=== PATIENT | male | born 2000 | race American Indian/Alaskan Native ===

== ENCOUNTER 2019-01-09 01:14 | Emergency (ER) | payer SELFPAY ==
--- NOTE | 2019-01-09 01:37 | Emergency Department Report ---
ED General Adult HPI - General Chief complaint: Seizure Stated complaint: SEIZURES/UNRESPONSIVE Time Seen by Provider: 01/09/19 01:25 Source: patient, family, EMS, RN notes reviewed Mode of arrival: Stretcher Limitations: Language Barrier - History of Present Illness Initial comments: This provider is conversational in Sami. Verbal report received from emergency medical services. EMS documentation not available at time of chart dictation Patient is a 18-year-old gentleman with no known past medical history brought to the ER by emergency medical services for general evaluation. Apparently, at home, the patient was demonstrate and bizarre behavior, such as breath holding, and not speaking. Emergency medical services stated patient had normal vital signs in the field, no loss of consciousness, and appear to be taking deep breaths, and intermittently holding his breaths. In the emergency room, the patient denies physical pain. He specifically indicates that he is not having headache, neck pain, chest pain, abdominal pain, shortness of breath or urinary symptoms. He indicated that he does not use recreational drugs. He is accompanied by a 16-year-old cousin, who indicates the patient may have been having shaking spells. -: This afternoon Consistency: intermittent Improves with: none Worsens with: none - Related Data Allergies Allergy/AdvReac Type Severity Reaction Status Date / Time No Known Allergies Allergy Unverified 01/09/19 01:37 ED Review of Systems ROS: Stated complaint: SEIZURES/UNRESPONSIVE Other details as noted in HPI Constitutional: denies: fever Respiratory: denies: cough Cardiovascular: denies: syncope Gastrointestinal: denies: abdominal pain, vomiting Genitourinary: denies: dysuria Musculoskeletal: denies: back pain Neurological: denies: headache ED Physical Exam - General Limitations: Language Barrier General appearance: alert, anxious - Head Head exam: Present: atraumatic, normocephalic - Eye Eye exam: Present: normal appearance, PERRL, EOMI, other (visual acuity intact to finger counting and color perception at a close distance). Absent: nystagmus - ENT ENT exam: Present: normal exam, normal orophraynx, mucous membranes moist, normal external ear exam - Neck Neck exam: Present: normal inspection, full ROM. Absent: tenderness, meningismus - Respiratory Respiratory exam: Present: normal lung sounds bilaterally. Absent: respiratory distress - Cardiovascular Cardiovascular Exam: Present: regular rate, normal rhythm, normal heart sounds. Absent: bradycardia, tachycardia, irregular rhythm, systolic murmur, diastolic murmur, rubs, gallop - GI/Abdominal GI/Abdominal exam: Present: soft. Absent: distended, tenderness, guarding, rigid, pulsatile mass - Rectal Rectal exam: Present: deferred - Extremities Exam Extremities exam: Present: normal inspection, full ROM, other (2+ pulses noted in the bilateral upper, lower extremities. There is no long bone tenderness. Musculoskeletal compartments are soft. The pelvis is stable.). Absent: pedal edema, joint swelling, calf tenderness - Back Exam Back exam: Present: normal inspection, full ROM. Absent: tenderness, CVA tenderness (R), CVA tenderness (L), paraspinal tenderness, vertebral tenderness - Neurological Exam Neurological exam: Present: alert (patient alert to name, year and location. Patient follows commands.), normal gait, other (there is no facial droop. The tongue is midline. Extraocular movements are intact bilaterally. There is 5/5 strength in 4 extremities. Sensation is intact to light touch in 4 extremities.) - Psychiatric Psychiatric exam: Present: anxious - Skin Skin exam: Present: warm, dry, intact, normal color. Absent: rash ED Course Vital Signs 01/09/19 01/09/19 01/09/19 01:22 01:26 03:44 Temperature 98.4 F 98.6 F Pulse Rate 64 75 72 Respiratory 16 20 16 Rate Blood Pressure 117/65 99/64 109/77 [Right] O2 Sat by Pulse 100 100 97 Oximetry - Reevaluation(s) Reevaluation #1: 01/09/19 01:42 Differential diagnosis, including but not limited to: Anxiety, conversion disorder, convulsion, seizure, pseudoseizure Assessment and plan: 18-year-old gentleman with reported episode of shaking, who is awake, alert, oriented, walks with a steady gait, denies physical pain, appears to be somewhat anxious at this time. The patient is clinically sober at this time. He makes no complaint of homicidality or suicidality. He is amenable to screening laboratory studies, EKG, noncontrast CT scan of the brain. Reevaluation #2: 01/09/19 02:23 CT scan of the brain is negative for acute disease. Patient following commands. Continues to walk with a steady gait. No further events noted. Reevaluation #3: 01/09/19 02:45 Serum toxicology screen unremarkable. Basic metabolic panel unremarkable. No convulsive events noted. Resting comfortably. Follows commands. Does not appear to be in any acute distress. Reevaluation #4: 01/09/19 03:26 Patient with no change in clinical condition on multiple repeat evaluations. Vital signs are unremarkable, screening laboratory studies unremarkable, patient does not appear to have an emergent medical condition at this time, and he is suitable to follow-up with an outpatient primary care doctor. He is currently accompanied by an adult family member. ED Medical Decision Making - Lab Data Result diagrams: 01/09/19 01:56 01/09/19 01:56 Vital Signs (72 hours) 01/09/19 01:26 Temperature 98.6 F Pulse Rate 75 Respiratory 20 Rate Blood Pressure 99/64 [Right] O2 Sat by Pulse 100 Oximetry Vital Signs 01/09/19 01/09/19 01:22 01:26 Temperature 98.4 F 98.6 F Pulse Rate 64 75 Respiratory 16 20 Rate Blood Pressure 117/65 99/64 [Right] O2 Sat by Pulse 100 100 Oximetry Lab Results 01/09/19 01/09/19 01/09/19 Range/Units 01:56 01:56 01:56 WBC 8.5 (4.5-11.0) K/mm3 RBC 4.87 (3.65-5.03) M/mm3 Hgb 14.1 (11.8-15.2) gm/dl Hct 42.1 (35.5-45.6) % MCV 87 (84-94) fl MCH 29 (28-32) pg MCHC 34 (32-34) % RDW 13.7 (13.2-15.2) % Plt Count 224 (140-440) K/mm3 Sodium 138 (137-145) mmol/L Potassium 3.6 (3.6-5.0) mmol/L Chloride 103.8 (98-107) mmol/L Carbon Dioxide 22 (22-30) mmol/L Anion Gap 16 mmol/L BUN 15 (9-20) mg/dL Creatinine 1.0 (0.8-1.5) mg/dL Estimated GFR > 60 ml/min BUN/Creatinine Ratio 15 % Glucose 113 H (75-100) mg/dL Calcium 9.1 (8.4-10.2) mg/dL Magnesium 2.10 (1.7-2.3) mg/dL Urine Bilirubin (Negative) Urine RBC (Auto) (0.0-6.0) /HPF Salicylates < 0.3 L (2.8-20.0) mg/dL Acetaminophen (10.0-30.0) ug/mL Plasma/Serum Alcohol (0-0.07) % 01/09/19 01/09/19 01/09/19 Range/Units 01:56 01:56 02:21 WBC (4.5-11.0) K/mm3 RBC (3.65-5.03) M/mm3 Hgb (11.8-15.2) gm/dl Hct (35.5-45.6) % MCV (84-94) fl MCH (28-32) pg MCHC (32-34) % RDW (13.2-15.2) % Plt Count (140-440) K/mm3 Sodium (137-145) mmol/L Potassium (3.6-5.0) mmol/L Chloride (98-107) mmol/L Carbon Dioxide (22-30) mmol/L Anion Gap mmol/L BUN (9-20) mg/dL Creatinine (0.8-1.5) mg/dL Estimated GFR ml/min BUN/Creatinine Ratio % Glucose (75-100) mg/dL Calcium (8.4-10.2) mg/dL Magnesium (1.7-2.3) mg/dL Urine Bilirubin Neg (Negative) Urine RBC (Auto) 2.0 (0.0-6.0) /HPF Salicylates (2.8-20.0) mg/dL Acetaminophen < 5.0 L (10.0-30.0) ug/mL Plasma/Serum Alcohol < 0.01 (0-0.07) % - EKG Data -: EKG Interpreted by Tn EKG shows normal: sinus rhythm Rate: normal - EKG Data 01/09/19 01:43 The EKG today shows a sinus rhythm, 79 beats for minute, normal axis, QTC is 476 ms, there is high left ventricular voltage, the EKG is abnormal, there is no prior for comparison, the EKG is not consistent with a STEMI - Radiology Data Radiology results: pending, report reviewed, image reviewed Critical care attestation.: If time is entered above; I have spent that time in minutes in the direct care of this critically ill patient, excluding procedure time. ED Disposition Clinical Impression: General medical exam Disposition: DC-01 TO HOME OR SELFCARE Is pt being admited?: No Does the pt Need Aspirin: No Condition: Stable Additional Instructions: Do not drive or operate motor vehicles for the next 6 months, or until cleared to do so by your primary care doctor. Drink 4-6 cups of water per day, and eat 3-6 well balanced meals every day. If patient is smoking cigarettes, consuming alcohol, or using recreational drugs, recommend patient discontinue these habits. Recommend patient follow up with an outpatient primary care doctor within the next 2 weeks. Return to the emergency room right away with new, worsened or different symptoms, or symptoms not present on the initial emergency room evaluation. No conduzca ni maneje vehculos motorizados ca los prximos 6 meses, o hasta que brady mdico de atencin primaria lo autorice. Shabana 4-6 tazas de agua por da, y coma 3-6 comidas mohit balanceadas todos los cerda. Si el paciente fuma cigarrillos, consume alcohol o usa drogas recreativas, recomiende que deje de usar estos hbitos. Recomendar el seguimiento del paciente con un mdico de atencin primaria ambulatoria dentro de las prximas 2 semanas. Regrese a la sergey de emergencias de inmediato con sntomas nuevos, empeorados o diferentes, o sntomas que no estn presentes en la evaluacin inicial de la sergey de emergencias. Referrals: [facility] [Provider Group] - 3-5 Days [facility] [Provider Group] - 3-5 Days Print Language: INDONESIAN
[2019-01-09] MEDS ORDERED: SODIUM CHLORIDE 0.9% 1000 ML 1,000 ML IV ONE (01:39)
--- NOTE | 2019-01-09 02:15 | Cat Scan Report ---
Examination: CT of the head without contrast Clinical information: Altered mental status. Convulsions. Comparison: None Technical: Multiple axial CT images of the head were obtained without intravenous contrast. Sagittal and coronal reformats were obtained. All CTs at this facility utilize dose reduction techniques inc luding automated exposure control, iterative reconstruction and weight based dosing when appropriate to reduce patient radiation dose to as low as reasonable achievable. Findings: There is no CT evidence of acute intracranial hemorrhage or large territorial infarct. The ventricula r system is normal in size. There are no extra-axial fluid collections. Evaluation of bony structures demonstrates no evidence of acute bony abnormality. The paranasal sinus es and mastoid air cells appear grossly clear. Impression: 1. No CT evidence of acute intracranial process. Signer Name: Nishi Elise MD Signed: 01/09/2019 2:10 AM Workstation Name: [id number]
[2019-01-09 02:18] LABS: Hematocrit 42.1 % (35.5-45.6); Hemoglobin 14.1 gm/dl (11.8-15.2); Mean Corpuscular HGB Conc 34 % (32-34); Mean Corpuscular Volume 87 fl (84-94); Platelet Count 224 K/mm3 (140-440); Red Blood Count 4.87 M/mm3 (3.65-5.03); Red Cell Distribution Width 13.7 % (13.2-15.2)
[2019-01-09 02:42] LABS: BUN/Creatinine Ratio 15; Blood Urea Nitrogen 15 mg/dL (9-20); Calcium 9.1 mg/dL (8.4-10.2); Hemolysis Index 11
[2019-01-09 02:44] LABS: Bilirubin,Urine NEG (Negative); Blood,Urine SM (Negative); Color,Urine Straw (Yellow); Protein,Urine <15 mg/dL mg/dL (Negative); Urobilinogen,Urine < 2.0 mg/dL (<2.0)
[2019-01-09 02:53] LABS: Amphetamine Screen,Urine PRESUMPTIVE NEGATIVE; Benzodiazepines Screen,Urine PRESUMPTIVE NEGATIVE; Cannabinoid Screen,Urine PRESUMPTIVE NEGATIVE; Cocaine Screen,Urine PRESUMPTIVE NEGATIVE; Methadone Screen,Urine PRESUMPTIVE NEGATIVE; Opiate Screen,Urine PRESUMPTIVE NEGATIVE
[2019-01-09 03:45] VITALS: BP 109/77
== END 2019-01-09 03:45 | disposition home or self-care (01) ==
LOC: ED 01:14
DX: R56.9 Unspecified convulsions (principal); R46.89 Other symptoms and signs involving appearance and behavior
CPT/HCPCS: 36415; 70450; 80048; 80307; 80320; 81001; 82550; 83735; 84443; 85027; 93005; 93010; G0480